=== PATIENT | male | born 1970 | race Caucasian/White ===

== ENCOUNTER 2016-10-11 14:15 | Inpatient (IN) | payer MEDICARE, MEDICAID ==
[2016-10-11] MEDS ORDERED: IOPAMIDOL 370 (76%) 100 ML VIAL IV ONE (14:16)
[2016-10-11] MEDS ORDERED: ALBUTEROL/IPRATROPIUM 2.5/0.5 MG 3 ML/EACH DOSE ONE ×2 (14:46→17:03)
[2016-10-11] MEDS ORDERED: ONDANSETRON 4 MG/2ML 2 ML VIAL ONE (15:09)
[2016-10-11] MEDS ORDERED: SODIUM CHLORIDE 0.9% 1,000 ML ONE (15:09)
[2016-10-11] MEDS ORDERED: ACETAMINOPHEN 500 MG TABLET ONE (15:10)
[2016-10-11] MEDS ORDERED: METHYLPRED SOD SUCCINATE 125 MG VIAL ONE (15:10)
[2016-10-11 15:20] LABS: BASO # 0.1 K/mm3 (0.0-0.2); BASO % 0.6 % (0.2-1.0); HEMATOCRIT 47.2 % (32.0-52.0); HEMOGLOBIN 15.6 gm/l (14.0-18.0); IMM NEUT% 0.3 % (0-1); LYMPH # 1.3 (1.0-4.8); MEAN CELL VOLUME 92.2 fl (80.0-94.0); MEAN CORPUSCULAR HEMOGLOBIN 30.5 pg (27.0-31.0); MEAN CORPUSCULAR HGB CONC 33.1 g/dl (33.0-37.0); MEAN PLATELET VOLUME 11.7 fl (7.4-10.4); MONO # 0.6 (0.0-0.8); MONO % 5.3 % (4-12); NEUT % 82.8 % (43-75); PLATELET COUNT 192 K/mm3 (130-400); RED CELL DISTRIBUTION WIDTH 13.3 % (11.5-14.5)
[2016-10-11 15:37] LABS: ALB/GLOB RATIO 1.1 (>1.0); ALBUMIN 3.8 gm/dL (3.5-5.7); CALCIUM 8.9 mg/dL (8.6-10.3)
[2016-10-11 15:45] LABS: TROPONIN I 0.06 ng/ml (0.0-0.06)
[2016-10-11] MEDS ORDERED: ASPIRIN CHEWTAB 81 MG TABLET ONE (16:32)
[2016-10-11 17:11] LABS: PH,URINE 6.5 (5.0-8.0); SPECIFIC GRAVITY 1.015 (1.001-1.030); URINE BILIRUBIN NEGATIVE (NEGATIVE); URINE BLOOD TRACE (NEGATIVE); URINE GLUCOSE (UA) NEGATIVE (NEGATIVE); URINE LEUKOCYTE ESTERASE TRACE (NEGATIVE); URINE NITRITE NEGATIVE (NEGATIVE); URINE PROTEIN 2+ (NEGATIVE); URINE UROBILINOGEN 1 mg/dL (0-1 mg/dl)
[2016-10-11 17:19] LABS: ARTERIAL BLOOD GAS BASE EXCESS 3.9 mmol/L (-2.0-2.0); ARTERIAL BLOOD GAS PO2 102.5 mmHg (80.0-90.0); ARTERIAL BLOOD GAS pH 7.33 (7.350-7.450)
[2016-10-11 17:32] LABS: URINE APPEARANCE SL CLOUDY; URINE COLOR DARK YELLOW
[2016-10-11 17:35] LABS: URINE BACTERIA RARE; URINE RBC 0-2 /hpf; URINE WBC 0-2 /hpf
[2016-10-11 17:43] LABS: AMPHETAMINES/METHAMPHETAMINES NEGATIVE (NEGATIVE); COCAINE NEGATIVE (NEGATIVE); MARIJUANA NEGATIVE (NEGATIVE); METHADONE NEGATIVE (NEGATIVE); OPIATES NEGATIVE (NEGATIVE); TRICYCLIC ANTIDEPRESSANTS NEGATIVE (NEGATIVE)
--- NOTE | 2016-10-11 19:06 | CT ---
INDICATION: Hypoxia COMPARISON: None. TECHNIQUE: Helical scan mode CT of the Thorax with 2 mm collimated images were obtained after uneventful intravenous contrast administration of 80 of Isovue-370. Sagittal and coronal reformations with high resolution lung algorithm images were also created at this time. Maximal intensity projection images and 3-D volumetric sequences were created at a separate, dedicated workstation. DLP: 1183.5 FINDINGS: There are no pulmonary arterial filling defects. Study is limited by patient breathing motion artifact. There may be some tree-in-bud opacity in the right upper lobe distribution versus nodular airspace disease though motion artifact does limit assessment. No pleural effusion. The central airways are widely patent. There is no axillary. A single enlarged mediastinal node is identified image 27 measuring 1.6 x 1.9 cm. No other adenopathy is noted within the mediastinum or garima. The heart and great vessels opacify normally. Probable mild cardiomegaly. Limited evaluation of the upper abdomen demonstrates no gross abnormalities. Review of bone windows demonstrates no osteoblastic or lytic lesions. IMPRESSION: 1. Negative for pulmonary embolism given limitations. 2. Possible nodular airspace disease versus tree-in-bud opacity in the right upper lobe which could relate to infection or other small airways disease. Findings were called to Dr. Gramajo at approximately 1854 hours on 10/11/2016.
[2016-10-11] MEDS ORDERED: BISACODYL 10 MG SUP PR PRN (20:32)
[2016-10-11] MEDS ORDERED: BLISTEX LIPSTICK 1 EACH TP PRN (20:32)
[2016-10-11] MEDS ORDERED: ACETAMINOPHEN 325 MG TABLET PO PRN (20:32)
[2016-10-11] MEDS ORDERED: BISACODYL 5 MG TABLET.EC PO PRN (20:32)
[2016-10-11] MEDS ORDERED: MENTHOL/CETYLPYRD 1 EACH LOZENGE PO PRN (20:32)
[2016-10-11] MEDS ORDERED: MAGNESIUM HYDROXIDE 30 ML UDCUP PO PRN (20:32)
[2016-10-11 20:33] VITALS: BMI 47.0
[2016-10-11] MEDS ORDERED: ALBUTEROL NEB 2.5 MG/3 ML VIAL.NEB NEB PRN (20:36)
[2016-10-11] MEDS ORDERED: PUMP TUBING ONE (20:59)
[2016-10-11] MEDS: D5 1/2NS with 20 mEq KCL 1,000 ML IV SCH (21:19)
[2016-10-11] MEDS: ENOXAPARIN SODIUM 40 MG/0.4 ML SYRINGE SUB-Q SCH (21:23)
[2016-10-11] MEDS: METHYLPRED SOD SUCCINATE 125 MG VIAL IV SCH (21:23)
[2016-10-11] MEDS: CEFTRIAXONE 1 GRAM DUPLEX 1 G in Premix (D5W) 50 ml 1 EACH IV SCH (21:24)
[2016-10-11] MEDS: DOCUSATE SODIUM 100 MG CAPSULE PO SCH (21:49)
[2016-10-11] MEDS: INSULIN ASPART (DOSE) 100 UNITS/1 ML SUB-Q PRN (21:58)
[2016-10-11] MEDS: AZITHROMYCIN 500 MG in SODIUM CHLORIDE 0.9% 250 ML IV SCH (21:59)
[2016-10-11] MEDS: ALBUTEROL/IPRATROPIUM 2.5/0.5 MG 3 ML/EACH DOSE NEB SCH (22:09)
[2016-10-12] MEDS: METHYLPRED SOD SUCCINATE 125 MG VIAL IV SCH ×4 (02:42→20:51)
[2016-10-12 06:39] LABS: CALCIUM 8.8 mg/dL (8.6-10.3)
--- NOTE | 2016-10-12 06:54 | HP ---
Ishmael Perez [id number] DATE OF ADMISSION: 10/11/2016 CHIEF COMPLAINT: Shortness of breath. HISTORY OF PRESENT ILLNESS: The patient is a 46-year-old male with a past medical history significant for obstructive sleep apnea and chronic obstructive pulmonary disease who presented to [facility] Emergency Department as referred by his primary care providers office with concerns about increasing shortness of breath. He reports a three day history of a cough which is nonproductive. He has been having chills for the last 48 hours. He reports a couple episodes of nausea with vomiting yesterday, but today he has had no further emesis. He has had worsening dyspnea, however, and severe hypoxia requiring treatment with BiPAP in the emergency department and was referred to the hospitalist service for admission. REVIEW OF SYSTEMS: Significant for chills. He has had no nasal congestion or ear pain. He reports a cough, which is nonproductive. He reports she has had dyspnea without chest pain or edema. No palpitations. No abdominal pain. He did have a couple episodes of emesis yesterday. No diarrhea or constipation. He denies any arthralgias. No headaches, fainting, blackouts, or seizures. No urinary complaints. PAST MEDICAL HISTORY: Is significant for chronic obstructive sleep apnea on CPAP therapy with chronic respiratory failure over the past year. He has morbid obesity which complicates his care. He also has chronic essential hypertension and a history of gastroesophageal reflux disease. His medical record indicates history of possible rheumatoid arthritis and possible Sjogren's disease. He denies history of diabetes despite its listing in his medical record. He denies any recent hospitalizations. PAST SURGICAL HISTORY: Significant for open reduction internal fixation of the right ankle in 1987 and pyloric stenosis surgery as a child. ALLERGIES: REPORTED TO NITROUS OXIDE AND PENICILLINS. CURRENT MEDICATIONS: Consist of: 1. Nifedipine Extended Release 90 mg daily. 2. Metformin 500 mg every morning. 3. Zestoretic 20/12.5 mg once daily. 4. Hydralazine 10 mg three times daily. 5. Coreg 25 mg twice daily. 6. Lipitor 10 mg daily. 7. Enteric coated aspirin 81 mg daily. 8. Abilify 400 mg intramuscularly every 30 days. 9. Diclofenac 1% gel one application topically three times a day as needed for pain. FAMILY HISTORY: Significant for parents with a history of hypertension and a father with diabetes. SOCIAL HISTORY: He lives with his parents in [place]. He is currently on parole. 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 He is a smoker and smokes a pack per day and has done so for the last 30 years. He denies alcohol use. His primary care provider is Dr. Lou. PHYSICAL EXAMINATION: VITALS: Body mass index is 47, weight is 136.2 kg, temperature is 98.8, pulse 72, blood pressure 119/61, respirations 22, oxygen saturations are 97% on BiPAP settings with an FIO2 of 55%. He was down to 86% on room air in the emergency department. GENERAL: This is an obese male in moderate respiratory distress. HEENT: Unremarkable. NECK: Supple without lymphadenopathy or thyromegaly. LUNGS: Clear to auscultation, but diffusely decreased breath sounds throughout. CARDIOVASCULAR: Reveals a regular rate and rhythm without a murmur. ABDOMEN: Obese, soft, nontender, nondistended with positive bowel sounds. GENITOURINARY: Deferred. RECTAL: Deferred. EXTREMITIES: Show no peripheral edema. Dorsalis pedis pulses are 2+ at the feet bilaterally. Capillary refill is less than 2 seconds. LABORATORY: CBC shows a white count of 12,000, hemoglobin of 15.6, platelet count of 192,000. Lactate was elevated at 2.3. Arterial blood gas showed a pH of 7.33, pO2 of 102.5, pCO2 of 62. Chemistry profile shows a sodium of 136, potassium 3.6, chloride is 98, carbon dioxide 29, BUN 13, creatinine 1.3, glucose 180. Liver function tests are normal. Cardiac enzymes show a troponin of 0.06 which is stable and serial tests. B-type natiuretic peptide is 127. Urinalysis is unremarkable except for 2+ protein. DIAGNOSTICS: CTA of the chest shows nodular airspace disease in the right upper lobe worrisome for developing infiltrate. ASSESSMENT: The patient has a acute on chronic hypoxic and hypercapneic respiratory failure with early bacterial pneumonia. He has evidence of chronic obstructive pulmonary disease exacerbation and meets criteria for severe sepsis. His care is complicated by morbid obesity and obstructive sleep apnea with chronic hypoxic respiratory failure. He is admitted to the intensive care unit for the BiPAP therapy. He will be hydrated and treated with Rocephin and Zithromax. He will also be given Solu-Medrol, DuoNebs, as well as albuterol as needed. Venous thromboembolism risk is moderate and Lovenox has been prescribed for prophylaxis. Further treatment and recommendations will depend on his hospital course. JOB: [id number] CC: Dr. Lou in the [facility]
[2016-10-12] MEDS: D5 1/2NS with 20 mEq KCL 1,000 ML IV SCH ×2 (08:30→17:38)
[2016-10-12] MEDS ORDERED: LISINOPRIL PO SCH (09:00)
[2016-10-12] MEDS ORDERED: PNEUMOCOCCAL 23-VAL P-SAC VAC 0.5 ML VIAL IM V ONE (09:00)
[2016-10-12] MEDS ORDERED: HYDROCHLOROTHIAZIDE PO SCH (09:00)
[2016-10-12] MEDS ORDERED: METFORMIN HCL 500 MG TABLET PO SCH (09:00)
[2016-10-12] MEDS ORDERED: FLU VACC 2016-17 (36MO-64Y)/PF 60 MCG/0.5 ML SYRINGE IM V ONE (09:00)
[2016-10-12] MEDS ORDERED: ATORVASTATIN CALCIUM 10 MG TABLET PO SCH (09:00)
[2016-10-12] MEDS: HYDRALAZINE HCL 10 MG TABLET PO SCH ×3 (09:34→20:52)
[2016-10-12] MEDS: LISINOPRIL 20 MG TABLET PO SCH (09:34)
[2016-10-12] MEDS: ASPIRIN (ENTERIC COATED) 81 MG TABLET.EC PO SCH (09:34)
[2016-10-12] MEDS: HYDROCHLOROTHIAZIDE 12.5 MG CAP PO SCH (09:34)
[2016-10-12] MEDS: CARVEDILOL 25 MG TABLET PO SCH ×2 (09:35→20:52)
[2016-10-12] MEDS: DOCUSATE SODIUM 100 MG CAPSULE PO SCH ×2 (09:37→20:52)
[2016-10-12] MEDS: NIFEDIPINE 30 MG TAB.XL PO SCH (09:49)
[2016-10-12] MEDS: ALBUTEROL/IPRATROPIUM 2.5/0.5 MG 3 ML/EACH DOSE NEB SCH ×4 (10:00→20:08)
[2016-10-12 10:04] LABS: ARTERIAL BLOOD GAS BASE EXCESS 0.8 mmol/L (-2.0-2.0); ARTERIAL BLOOD GAS HCO3 28.2 mmol/L (22.0-28.0); ARTERIAL BLOOD GAS PO2 61.2 mmHg (80.0-90.0); ARTERIAL BLOOD GAS pH 7.32 (7.350-7.450)
[2016-10-12] MEDS: INSULIN ASPART (DOSE) 100 UNITS/1 ML SUB-Q PRN ×4 (10:18→21:58)
[2016-10-12] MEDS: NICOTINE 21 MG PATCH 1 EACH TD PRN (10:24)
--- NOTE | 2016-10-12 10:27 | PDOC43 ---
- Subjective Chief Complaint: Shortness of breath Subjective: Reports Tolerating Diet Well, Reports Shortness of Breath (improving ), Denies Chest Pain, Denies Vomiting, Denies Fever - Objective Vital Signs Temperature 97.5 F 10/12/16 07:47 Pulse Rate 73 10/12/16 10:01 Respiratory Rate 18 10/12/16 10:01 Blood Pressure 141/66 10/12/16 07:47 O2 Saturation by Pulse Oximetry 92 10/12/16 10:01 Oxygen Delivery Method Nasal Cannula Oxygen Flow Rate 3 Intake and Output 10/11/16 10/12/16 10/13/16 06:59 06:59 06:59 Intake Total 1821 Output Total 825 500 Balance 996 -500 General: Alert, Oriented x3, Cooperative, Moderate Distress HEENT: Mucous membr. moist/pink Lungs: Diminished at Bases (with scattered wheezing) Cardiovascular: Regular Rate and Rhythm Abdomen: Soft, Normal Bowel Sounds, Non-Distended, No Tenderness Extremities: No Edema Skin: Warm, Dry, Intact Laboratory 10/12/16 05:30 10/12/16 10/12/16 10/11/16 10:12 08:52 21:55 pCO2 56.0 H pO2 61.2 L ABG pH 7.320 L ABG HCO3 28.2 H ABG O2 Saturation 91.0 L POC Capillary Glucose 193 H 258 H Current Medications: Current meds reviewed in EMR. - Problems: Assessment/Plan (1) Pneumonia Qualifiers: Pneumonia type: due to unspecified organism Laterality: right Lung location: upper lobe of lung Qualifier Code: (J18.1) Lobar pneumonia, unspecified organism Status: AcuteAssessment/Plan: on CT, bacterial, community acquired-cont rocephin and zithromax (2) Respiratory failure, [id number] Qualifiers: Respiratory failure complication: hypoxia and hypercapnia Qualifier Code: (J96.21) Acute and chronic respiratory failure with hypoxia Status: AcuteAssessment/Plan: on Bipap at home when sleeping but with daytime hypoxia and hypercapnea on admit -cont Bipap when sleeping, trial oxygen during day (3) Obstructive sleep apnea of adult Status: ChronicAssessment/Plan: On home Bipap (4) Morbid obesity due to excess calories Status: ChronicAssessment/Plan: complicates care (5) COPD exacerbation Status: ChronicAssessment/Plan: on Solu-medrol and nebs (6) Glucose intolerance (impaired glucose tolerance) Status: ChronicAssessment/Plan: hyperglycemia worsened by steroids-cont SSI VTE Prophylaxis: Lovenox Disposition: home in 1-3 days Additional Comments: downgrade to Med/ Surg later
[2016-10-12] MEDS: ATORVASTATIN CALCIUM 10 MG TABLET PO SCH (10:49)
[2016-10-12] MEDS ORDERED: PUMP TUBING ONE (20:42)
[2016-10-12] MEDS: CEFTRIAXONE 1 GRAM DUPLEX 1 G in Premix (D5W) 50 ml 1 EACH IV SCH (20:50)
[2016-10-12] MEDS: SODIUM CHLORIDE 0.9% 100 ML IV PRN (20:50)
[2016-10-12] MEDS: ENOXAPARIN SODIUM 40 MG/0.4 ML SYRINGE SUB-Q SCH (20:51)
[2016-10-12] MEDS: AZITHROMYCIN 500 MG in SODIUM CHLORIDE 0.9% 250 ML IV SCH (21:49)
[2016-10-12] MEDS ORDERED: WATER FOR IRRIG,STERILE 500 ML BOT ONE (23:02)
[2016-10-13] MEDS: METHYLPRED SOD SUCCINATE 125 MG VIAL IV SCH ×4 (03:33→21:10)
[2016-10-13] MEDS: ALBUTEROL/IPRATROPIUM 2.5/0.5 MG 3 ML/EACH DOSE NEB SCH ×4 (08:37→20:05)
[2016-10-13] MEDS: INSULIN ASPART (DOSE) 100 UNITS/1 ML SUB-Q PRN ×5 (08:55→22:20)
[2016-10-13] MEDS: NIFEDIPINE 30 MG TAB.XL PO SCH (08:56)
[2016-10-13] MEDS: LISINOPRIL 20 MG TABLET PO SCH (08:57)
[2016-10-13] MEDS: HYDROCHLOROTHIAZIDE 12.5 MG CAP PO SCH (08:57)
[2016-10-13] MEDS: DOCUSATE SODIUM 100 MG CAPSULE PO SCH ×2 (08:57→21:10)
[2016-10-13] MEDS: HYDRALAZINE HCL 10 MG TABLET PO SCH ×3 (08:57→21:10)
[2016-10-13] MEDS: ASPIRIN (ENTERIC COATED) 81 MG TABLET.EC PO SCH (08:57)
[2016-10-13] MEDS: ATORVASTATIN CALCIUM 10 MG TABLET PO SCH (08:58)
[2016-10-13] MEDS: CARVEDILOL 25 MG TABLET PO SCH ×2 (08:58→21:10)
[2016-10-13] MEDS: NICOTINE 21 MG PATCH 1 EACH TD PRN (09:25)
--- NOTE | 2016-10-13 11:50 | PDOC43 ---
- Subjective Chief Complaint: Shortness of breath Subjective: Reports Shortness of Breath (improved), Denies Chest Pain - Objective Vital Signs Temperature 98.1 F 10/13/16 07:57 Pulse Rate 74 10/13/16 08:38 Respiratory Rate 22 10/13/16 09:15 Blood Pressure 137/62 10/13/16 07:57 O2 Saturation by Pulse Oximetry 90 10/13/16 08:38 Oxygen Delivery Method Bleed In Oxygen Flow Rate 4 Intake and Output 10/12/16 10/13/16 10/14/16 06:59 06:59 06:59 Intake Total 1821 3120 Output Total 825 1050 Balance 996 2070 General: Alert, Oriented x3, Cooperative, No Acute Distress HEENT: Mucous membr. moist/pink Lungs: Diminished at Bases, Other (scattered wheezing) Cardiovascular: Regular Rate and Rhythm Abdomen: Soft, Normal Bowel Sounds, Non-Distended, No Tenderness Extremities: No Edema Laboratory 10/12/16 05:30 10/13/16 10/12/16 10/12/16 07:24 21:53 19:06 POC Capillary Glucose 217 H 320 H 272 H 10/12/16 15:30 POC Capillary Glucose 248 H Current Medications: Current meds reviewed in EMR. - Problems: Assessment/Plan (1) Pneumonia Qualifiers: Pneumonia type: due to unspecified organism Laterality: right Lung location: upper lobe of lung Qualifier Code: (J18.1) Lobar pneumonia, unspecified organism Status: AcuteAssessment/Plan: on CT, bacterial, community acquired-cont rocephin and zithromax (2) Respiratory failure, [id number] Qualifiers: Respiratory failure complication: hypoxia and hypercapnia Qualifier Code: (J96.21) Acute and chronic respiratory failure with hypoxia Status: AcuteAssessment/Plan: on Bipap at home when sleeping but with daytime hypoxia and hypercapnea on admit -cont Bipap when sleeping, wean oxygen as tolorated-plan on outpatient pulmonary follow up (3) Obstructive sleep apnea of adult Status: ChronicAssessment/Plan: severe On home Bipap-outpatient pulmonary follow up (4) Morbid obesity due to excess calories Status: ChronicAssessment/Plan: complicates care (5) COPD exacerbation Status: ChronicAssessment/Plan: on Solu-medrol and nebs-will need home nebulizer, may need home oxygen (6) Glucose intolerance (impaired glucose tolerance) Status: ChronicAssessment/Plan: hyperglycemia worsened by steroids-cont SSI VTE Prophylaxis: Lovenox Disposition: home in 1-3 days
[2016-10-13] MEDS: CEFTRIAXONE 1 GRAM DUPLEX 1 G in Premix (D5W) 50 ml 1 EACH IV SCH (20:59)
[2016-10-13] MEDS: ENOXAPARIN SODIUM 40 MG/0.4 ML SYRINGE SUB-Q SCH (21:10)
[2016-10-13] MEDS: AZITHROMYCIN 500 MG in SODIUM CHLORIDE 0.9% 250 ML IV SCH (22:04)
[2016-10-14] MEDS: METHYLPRED SOD SUCCINATE 125 MG VIAL IV SCH (04:00)
[2016-10-14] MEDS: INSULIN ASPART (DOSE) 100 UNITS/1 ML SUB-Q PRN ×4 (07:35→21:43)
[2016-10-14] MEDS ORDERED: INSULIN GLARGINE (DOSE) 100 UNITS/ML UNIT SUB-Q ONE (07:43)
[2016-10-14] MEDS ORDERED: PREDNISONE 20 MG TABLET PO ONE (07:44)
[2016-10-14] MEDS: ALBUTEROL/IPRATROPIUM 2.5/0.5 MG 3 ML/EACH DOSE NEB SCH ×4 (08:13→20:22)
--- NOTE | 2016-10-14 08:18 | PDOC43 ---
- Subjective Chief Complaint: Shortness of breath Subjective: Reports Tolerating Diet Well, Reports Shortness of Breath (slowly improving), Denies Chest Pain, Denies Fever - Objective Vital Signs Temperature 98.7 F 10/14/16 07:00 Pulse Rate 67 10/14/16 07:00 Respiratory Rate 18 10/14/16 08:00 Blood Pressure 135/67 10/14/16 07:00 O2 Saturation by Pulse Oximetry 92 10/14/16 07:00 Oxygen Delivery Method Nasal Cannula Oxygen Flow Rate 1 Intake and Output 10/13/16 10/14/16 10/15/16 06:59 06:59 07:59 Intake Total 3120 2760 Output Total 1050 1875 150 Balance 2070 885 -150 General: Alert, Oriented x3, Cooperative, Mild Distress HEENT: Mucous membr. moist/pink Lungs: Other (scattered wheezing, improving air movement) Cardiovascular: Regular Rate and Rhythm Abdomen: Soft, Normal Bowel Sounds, Non-Distended, No Tenderness Extremities: No Edema Skin: Warm, Dry, Intact Laboratory 10/12/16 05:30 10/14/16 10/13/16 10/13/16 07:29 22:13 19:22 POC Capillary Glucose 191 H 339 H 258 H 10/13/16 10/13/16 16:16 12:41 POC Capillary Glucose 298 H 270 H Current Medications: Current meds reviewed in EMR. - Problems: Assessment/Plan (1) Pneumonia Qualifiers: Pneumonia type: due to unspecified organism Laterality: right Lung location: upper lobe of lung Qualifier Code: (J18.1) Lobar pneumonia, unspecified organism Status: AcuteAssessment/Plan: on CT, bacterial, community acquired-cont rocephin and finished zithromax (2) Respiratory failure, [id number] Qualifiers: Respiratory failure complication: hypoxia and hypercapnia Qualifier Code: (J96.21) Acute and chronic respiratory failure with hypoxia Status: AcuteAssessment/Plan: on Bipap at home when sleeping but with daytime hypoxia and hypercapnea on admit -cont Bipap when sleeping, wean oxygen as tolerated-plan on outpatient pulmonary follow up (3) Obstructive sleep apnea of adult Status: ChronicAssessment/Plan: severe On home Bipap-outpatient pulmonary follow up (4) Morbid obesity due to excess calories Status: ChronicAssessment/Plan: complicates care (5) COPD exacerbation Status: ChronicAssessment/Plan: on Solu-medrol and nebs-will need home nebulizer, anticipate weaning of oxygen in next 24hrs, transition to PO prednisone (6) Glucose intolerance (impaired glucose tolerance) Status: ChronicAssessment/Plan: hyperglycemia worsened by steroids-cont SSI, single dose of Lantus this am VTE Prophylaxis: Lovenox Disposition: home in am most likely if off oxygen Additional Comments: downgrade to Med/ Surg later
[2016-10-14] MEDS: ASPIRIN (ENTERIC COATED) 81 MG TABLET.EC PO SCH (08:49)
[2016-10-14] MEDS: CARVEDILOL 25 MG TABLET PO SCH ×2 (08:49→21:07)
[2016-10-14] MEDS: NIFEDIPINE 30 MG TAB.XL PO SCH (08:50)
[2016-10-14] MEDS: HYDROCHLOROTHIAZIDE 12.5 MG CAP PO SCH (08:50)
[2016-10-14] MEDS: LISINOPRIL 20 MG TABLET PO SCH (08:50)
[2016-10-14] MEDS: DOCUSATE SODIUM 100 MG CAPSULE PO SCH ×2 (08:50→21:07)
[2016-10-14] MEDS: ATORVASTATIN CALCIUM 10 MG TABLET PO SCH (08:50)
[2016-10-14] MEDS: HYDRALAZINE HCL 10 MG TABLET PO SCH ×3 (09:01→21:07)
[2016-10-14] MEDS: CEFTRIAXONE 1 GRAM DUPLEX 1 G in Premix (D5W) 50 ml 1 EACH IV SCH (21:07)
[2016-10-14] MEDS: ENOXAPARIN SODIUM 40 MG/0.4 ML SYRINGE SUB-Q SCH (21:43)
[2016-10-14] MEDS ORDERED: IV START KIT ONE (21:49)
[2016-10-15 08:19] LABS: ABSOLUTE NEUTROPHIL COUNT 10.3 K/mm3 (1.8-7.7); BASO % 0.1 % (0.2-1.0); HEMATOCRIT 42.4 % (32.0-52.0); IMM NEUT # 0.2 K/mm3 (0-0.2); IMM NEUT% 1.1 % (0-1); LYMPH # 3.8 (1.0-4.8); LYMPH % 24.5 % (15-45); MEAN CELL VOLUME 91.4 fl (80.0-94.0); MEAN CORPUSCULAR HEMOGLOBIN 30.2 pg (27.0-31.0); MEAN PLATELET VOLUME 11.1 fl (7.4-10.4); MONO # 1.2 (0.0-0.8); MONO % 7.9 % (4-12); NEUT % 66.4 % (43-75); PLATELET COUNT 216 K/mm3 (130-400); RED CELL DISTRIBUTION WIDTH 13.1 % (11.5-14.5)
[2016-10-15 08:39] LABS: CALCIUM 8.4 mg/dL (8.6-10.3)
[2016-10-15] MEDS: LISINOPRIL 20 MG TABLET PO SCH (09:08)
[2016-10-15] MEDS: INSULIN ASPART (DOSE) 100 UNITS/1 ML SUB-Q PRN ×3 (09:08→19:20)
[2016-10-15] MEDS: DOCUSATE SODIUM 100 MG CAPSULE PO SCH ×2 (09:09→20:29)
[2016-10-15] MEDS: NIFEDIPINE 30 MG TAB.XL PO SCH (09:09)
[2016-10-15] MEDS: HYDROCHLOROTHIAZIDE 12.5 MG CAP PO SCH (09:09)
[2016-10-15] MEDS: PREDNISONE 20 MG TABLET PO SCH (09:09)
[2016-10-15] MEDS: ATORVASTATIN CALCIUM 10 MG TABLET PO SCH (09:09)
[2016-10-15] MEDS: ASPIRIN (ENTERIC COATED) 81 MG TABLET.EC PO SCH (09:09)
[2016-10-15] MEDS: CARVEDILOL 25 MG TABLET PO SCH ×2 (09:10→20:29)
[2016-10-15] MEDS: HYDRALAZINE HCL 10 MG TABLET PO SCH ×3 (09:11→20:29)
[2016-10-15] MEDS: ALBUTEROL/IPRATROPIUM 2.5/0.5 MG 3 ML/EACH DOSE NEB SCH ×4 (09:42→19:32)
[2016-10-15] MEDS: NICOTINE 21 MG PATCH 1 EACH TD PRN (09:53)
--- NOTE | 2016-10-15 11:35 | PDOC43 ---
- Subjective Chief Complaint: Shortness of breath Still dyspnic and wheezing but feels he is improving, wants to go home with O2 prescription. - Objective Vital Signs Temperature 98.2 F 10/15/16 07:00 Pulse Rate 61 10/15/16 07:00 Respiratory Rate 20 10/15/16 08:00 Blood Pressure 148/93 10/15/16 07:00 O2 Saturation by Pulse Oximetry 91 10/15/16 07:00 Oxygen Delivery Method CPAP Oxygen Flow Rate 1.5 Intake and Output 10/14/16 10/15/16 10/16/16 05:59 06:59 06:59 Intake Total Output Total Balance General: Alert, Oriented x3, Cooperative, No Acute Distress HEENT: Mucous membr. moist/pink Lungs: Other (insp/exp wheezes throughout) Cardiovascular: Regular Rate and Rhythm Abdomen: Soft, Normal Bowel Sounds, No Tenderness, No Masses Extremities: Normal Pulses, No Edema Neurological: Normal Speech Psych/Mental Status: Flat Affect Laboratory 10/15/16 08:15 10/15/16 08:15 10/15/16 10/14/16 10/14/16 08:15 21:36 18:09 RBC 4.64 L BUN 33 H Estimated GFR 104 H POC Capillary Glucose 374 H 279 H Calcium 8.4 L % Immature Granulocyt 1.1 H 10/14/16 13:06 RBC BUN Estimated GFR POC Capillary Glucose 212 H Calcium % Immature Granulocyt Current Medications: Current meds reviewed in EMR. - Problems: Assessment/Plan (1) Pneumonia Qualifiers: Pneumonia type: due to unspecified organism Laterality: right Lung location: upper lobe of lung Qualifier Code: (J18.1) Lobar pneumonia, unspecified organism Status: AcuteAssessment/Plan: Presumed bacterial with severe sepsis present on admit. No specific organism identified. Finished azithromycin, continue ceftriaxone. (2) Respiratory failure, [id number] Qualifiers: Respiratory failure complication: hypoxia and hypercapnia Qualifier Code: (J96.21) Acute and chronic respiratory failure with hypoxia Status: AcuteAssessment/Plan: on Bipap at home when sleeping but with daytime hypoxia and hypercapnea on admit -cont Bipap when sleeping, wean oxygen as tolerated-plan on outpatient pulmonary follow up (3) COPD exacerbation Status: ChronicAssessment/Plan: on PO prednisone, scheduled duonebs and prn albuterol. (4) Glucose intolerance (impaired glucose tolerance) Status: ChronicAssessment/Plan: hyperglycemia worsened by steroids-continue correction dose insulin, check A1c (5) Morbid obesity due to excess calories Status: ChronicAssessment/Plan: complicates care of pneumonia, chronic respiratory failure, COPD, BOB (6) Obstructive sleep apnea of adult Status: ChronicAssessment/Plan: severe On home Bipap-outpatient pulmonary follow up (7) Leukocytosis Qualifiers: Leukocytosis type: unspecified Qualifier Code: (D72.829) Elevated white blood cell count, unspecified Status: AcuteAssessment/Plan: due to steroid treatment. (8) Nicotine dependence Qualifiers: Nicotine product type: cigarettes Substance use status: uncomplicated Qualifier Code: (F17.210) Nicotine dependence, cigarettes, uncomplicated Status: ChronicAssessment/Plan: on replacement tx (9) HTN (hypertension), benign Status: ChronicAssessment/Plan: severe requiring multiple medications, moderate control (10) Dyslipidemia Status: ChronicAssessment/Plan: continue statin tx. (11) GERD (gastroesophageal reflux disease) Qualifiers: Esophagitis presence: esophagitis presence not specified Qualifier Code : (K21.9) Gastro-esophageal reflux disease without esophagitis Status: ChronicAssessment/Plan: Noted in H&P, no current c/o but add pantoprazole with prednisone treatment. VTE Prophylaxis: Lovenox Disposition: home in am most likely if off oxygen
[2016-10-15] MEDS: PANTOPRAZOLE 40 MG TABLET DR PO SCH (12:15)
[2016-10-15] MEDS ORDERED: PUMP TUBING ONE (20:26)
[2016-10-15] MEDS: SODIUM CHLORIDE 0.9% 100 ML IV PRN (20:28)
[2016-10-15] MEDS: CEFTRIAXONE 1 GRAM DUPLEX 1 G in Premix (D5W) 50 ml 1 EACH IV SCH (20:29)
[2016-10-15] MEDS: ENOXAPARIN SODIUM 40 MG/0.4 ML SYRINGE SUB-Q SCH (20:29)
[2016-10-16 00:47] LABS: A1C-GLYCOHEMOGLOBIN 0.8 g/dl; HEMOGLOBIN-GLYCO 13.2 g/dl
[2016-10-16] MEDS: ALBUTEROL/IPRATROPIUM 2.5/0.5 MG 3 ML/EACH DOSE NEB SCH ×2 (08:30→11:38)
[2016-10-16] MEDS: CARVEDILOL 25 MG TABLET PO SCH (09:03)
[2016-10-16] MEDS: ASPIRIN (ENTERIC COATED) 81 MG TABLET.EC PO SCH (09:04)
[2016-10-16] MEDS: LISINOPRIL 20 MG TABLET PO SCH (09:04)
[2016-10-16] MEDS: NIFEDIPINE 30 MG TAB.XL PO SCH (09:04)
[2016-10-16] MEDS: PANTOPRAZOLE 40 MG TABLET DR PO SCH (09:05)
[2016-10-16] MEDS: PREDNISONE 20 MG TABLET PO SCH (09:05)
[2016-10-16] MEDS: HYDROCHLOROTHIAZIDE 12.5 MG CAP PO SCH (09:06)
[2016-10-16] MEDS: ATORVASTATIN CALCIUM 10 MG TABLET PO SCH (09:06)
[2016-10-16] MEDS: DOCUSATE SODIUM 100 MG CAPSULE PO SCH (09:07)
[2016-10-16] MEDS: HYDRALAZINE HCL 10 MG TABLET PO SCH (09:12)
[2016-10-16] MEDS: INSULIN ASPART (DOSE) 100 UNITS/1 ML SUB-Q PRN (11:44)
[2016-10-16 11:46] VITALS: BP 177/106
--- NOTE | 2016-10-16 12:02 | DS ---
LAURITA PEREZ [id number] : 1970 DATE OF ADMISSION: October 11, 2016 DATE OF DISCHARGE: October 16, 2016 ADMIT DIAGNOSES: 1. Acute on chronic respiratory failure. 2. Bacterial pneumonia. 3. Chronic obstructive pulmonary disease exacerbation. 4. Severe sepsis. 5. Morbid obesity. 6. Obstructive sleep apnea. DISCHARGE DIAGNOSES: 1. Bacterial pneumonia present on admission with severe sepsis. 2. Acute on chronic hypoxemic and hypercapnic respiratory failure. 3. Chronic obstructive pulmonary disease with acute exacerbation. 4. Diabetes mellitus type 2 with glycosylated hemoglobin of 7.7%. 5. Morbid obesity with body mass index of 48.3. 6. Obstructive sleep apnea on home BiPAP treatment. 7. Reactive leukocytosis due to steroid treatment. 8. Chronic nicotine dependence. 9. Benign essential hypertension. 10. Dyslipidemia. 11. Gastroesophageal reflux disease. PROCEDURES: CT of the chest and thorax on the day of admission, negative for pulmonary embolism. There was nodular airspace disease in the right upper lobe. CONSULTATIONS: Physical therapy. Patient has limited mobility due to his morbid obesity but is appropriate for return to home. HISTORY ON ADMISSION: Mr. Perez is a 46-year-old followed by Dr. Lou. He is known to have obstructive sleep apnea and chronic obstructive pulmonary disease who presented to [facility] Room on referral from his physician's office due to increasing shortness of breath. He had been having chills and had severe hypoxia in the emergency department. He was diagnosed with right upper lobe pneumonia and treated with ceftriaxone and azithromycin and referred to the hospitalist service. HOSPITAL COURSE: The patient was admitted to intensive care unit initially as he was requiring BiPAP support. He was treated with intravenous solumedrol in addition to the antibiotics and nebulizer treatments. His symptoms gradually improved. On October 12, 2016, he was able to titrate off of BiPAP and return to just nasal CPAP with sleep. He was transferred from intensive care unit to the medical/surgical floor. He continued to improve slowly. On October 15, 2016, he was still requiring low flow oxygen, but on October 16, 2016 he was saturating 90% on room air. He is ambulatory and stable for discharge to home. DISCHARGE EXAM: VITAL SIGNS: Temperature 98.0 degrees Fahrenheit, pulse 57, blood pressure 137/80, respiratory rate 15, oxygen saturation 90% on room air. CHEST: Does shows scattered expiratory wheezes. HEART: Regular. ABDOMEN: Obese, nontender. EXTREMITIES: No edema, good pulses. DISCHARGE PLAN: 1. Discharge to home. 2. Follow up with Tammy Scott on October 19, 2016 at 1:40 p.m. 3. Recommended that he seek a referral to pulmonology as well. DISCHARGE DIET: Diabetic. DISCHARGE ACTIVITY: As tolerated. Encouraged ambulation. DISCHARGE MEDICATIONS: 1. Albuterol 2.5 nebulizers every four hours as needed. 2. Duoneb treatments four times daily, scheduled. 3. Acetaminophen 650 mg orally every six hours as needed. 4. Pantoprazole 40 mg orally daily for 20 days. 5. Prednisone taper 40 mg daily for four days, 20 mg daily for four days, 10 mg daily for six days and then stop. 6. Docusate sodium 100 mg orally twice daily. 7. Cefprozil 250 mg orally twice daily for five more days. 8. Metformin 500 mg orally daily. 9. Lisinopril with hydrochlorothiazide 20/12.5, one daily. 10. Hydralazine 10 mg three times daily. 11. Carvedilol 25 mg twice daily. 12. Atorvastatin 10 mg daily. 13. Aspirin 81 mg daily. 14. Abilify 400 mg intramuscular every 30 days. 15. Nifedipine 90 mg orally daily. 16. Diclofenac 1% gel topically three times daily as needed. Greater than 30 minutes was spent on direct patient care and coordination of care on the day of discharge. cc: David Lou M.D.
== END 2016-10-16 13:05 | disposition home or self-care (01) | DRG 871 ==
LOC: ED 14:15 → ICU 19:07 → MS 10-12 18:15
PROVIDERS: ADMIT Family Medicine; ATTEND Family Medicine
DX: A41.9 Sepsis, unspecified organism (principal); J15.9 Unspecified bacterial pneumonia; J18.9 Pneumonia, unspecified organism; J96.22 Acute and chronic respiratory failure with hypercapnia; J44.0 Chronic obstructive pulmonary disease with (acute) lower respiratory infection; J44.1 Chronic obstructive pulmonary disease with (acute) exacerbation; Z68.42 Body mass index [BMI] 45.0-49.9, adult; R65.20 Severe sepsis without septic shock; E66.01 Morbid (severe) obesity due to excess calories; G47.33 Obstructive sleep apnea (adult) (pediatric); E11.9 Type 2 diabetes mellitus without complications; I10 Essential (primary) hypertension; K21.9 Gastro-esophageal reflux disease without esophagitis; E78.5 Hyperlipidemia, unspecified